=== PATIENT | female | born 1985 | race Caucasian/White ===

== ENCOUNTER 2017-01-08 16:49 | Emergency (ER) | payer BC ==
[2017-01-08 17:23] VITALS: BP 153/88
[2017-01-08] MEDS ORDERED: Sodium Chloride 0.9% 10 ML Syringe FLUSH PRN (17:27)
[2017-01-08] MEDS ORDERED: Morphine 4 MG/ML Syringe IVPUSH ONE (17:29)
[2017-01-08] MEDS ORDERED: Ondansetron 4 MG/2 ML SDV IV ONE (17:30)
--- NOTE | 2017-01-08 17:37 | EDM.PDOC ---
<Purvi Borden - Last Filed: 01/08/17 17:30> ED HPI GENERAL MEDICAL PROBLEM - General Chief Complaint: Abdominal Pain Stated Complaint: ABD PAINS, [id number] Time Seen by Provider: 01/08/17 17:30 Source of Information: Reports: Patient, RN Notes Reviewed - History of Present Illness INITIAL COMMENTS - FREE TEXT/NARRATIVE: patient is a morbidly obese 31-year-old female who presents with upper epigastric and right upper abdominal pain after having pizza for lunch. She states that the pain has been there for about 2 hours she states she's had the pain before but it has never been this bad. She states his goal aching and sometimes sharp and radiates into the back. She rates the pain a 7/10. She states nothing makes it better nothing makes it worse. She denies any nausea vomiting fever chills urinary symptoms. Severity: Moderate Improves with: Reports: None Worsens with: Reports: None - Related Data Allergies Allergy/AdvReac Type Severity Reaction Status Date / Time seasonal AdvReac Mild sinus Uncoded 01/08/17 17:06 infections Home Meds: Home Meds Labetalol HCl [Labetalol] 100 mg PO BID 01/08/17 [History] Lactase [Lactaid] 1 tab PO ASDIRECTED PRN 01/08/17 [History] Letrozole [Letrozole] 2.5 mg PO ASDIRECTED 01/08/17 [History] Loratadine [Claritin] 10 mg PO DAILY PRN 01/08/17 [History] metFORMIN HCl [Metformin HCl] 500 mg PO BID 01/08/17 [History] Past Medical History HEENT History: Reports: Impaired Vision Other HEENT History: wears contacts Cardiovascular History: Reports: Hypertension Respiratory History: Reports: None Gastrointestinal History: Reports: None Genitourinary History: Reports: None 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: Reports: Polycystic Ovaries, Other (See Below) Other OB/BYN History: miscarriage x1 2016 Musculoskeletal History: Reports: Back Pain, Chronic, Other (See Below) Other Musculoskeletal History: lower back issues and sees a chiropractor Neurological History: Reports: None Psychiatric History: Reports: None Endocrine/Metabolic History: Reports: None Hematologic History: Reports: None Oncologic (Cancer) History: Reports: None Dermatologic History: Reports: None - Infectious Disease History Infectious Disease History: Reports: None - Past Surgical History Female Surgical History: Reports: D&C Social & Family History - Tobacco Use Smoking Status *Q: Never Smoker Second Hand Smoke Exposure: No - Caffeine Use Caffeine Use: Reports: Soda - Recreational Drug Use Recreational Drug Use: No ED ROS GENERAL - Review of Systems Review Of Systems: ROS reveals no pertinent complaints other than HPI. ED EXAM, GI/ABD - Physical Exam Exam: See Below Exam Limited By: No Limitations General Appearance: Alert, WD/WN, No Apparent Distress Neck: Normal Inspection, Supple, Non-Tender, Full Range of Motion Respiratory/Chest: No Respiratory Distress, Lungs Clear, Normal Breath Sounds, No Accessory Muscle Use, Chest Non-Tender Cardiovascular: Normal Peripheral Pulses, Regular Rate, Rhythm, No Edema, No Gallop, No JVD, No Murmur, No Rub GI/Abdominal: Normal Bowel Sounds, Soft, No Organomegaly, No Distention, No Abnormal Bruit, Pelvis Stable, Tenderness, Other (right upper quadrant tenderness as well as midline epigastric) Extremities: Normal Inspection, Normal Range of Motion, Non-Tender, Normal Capillary Refill, No Pedal Edema Neurological: Alert, Oriented, CN II-XII Intact, Normal Cognition, Normal Gait, Normal Reflexes, No Motor/Sensory Deficits Psychiatric: Normal Affect, Normal Mood Skin Exam: Warm, Dry, Intact, Normal Color, No Rash Course - Vital Signs Last Recorded V/S: Last Vital Signs Temp 98.7 F 01/08/17 16:54 Pulse 92 01/08/17 16:54 Resp 16 01/08/17 16:54 BP 153/88 H 01/08/17 16:54 Pulse Ox 98 01/08/17 16:54 - Orders/Labs/Meds Orders: Active Orders 24 hr Category Date Time Status Peripheral IV Care [RC] . DIRECTED Care 01/08/17 17:28 Active Sodium Chloride 0.9% [Saline Flush] Med 01/08/17 17:27 Active 10 ml FLUSH ASDIRECTED PRN Peripheral IV Insertion Adult [OM.PC] Routine Oth 01/08/17 17:27 Ordered Medication Orders Sodium Chloride (Saline Flush) 10 ml FLUSH ASDIRECTED PRN PRN Reason: Keep Vein Open Labs: Laboratory Tests 01/08/17 01/08/17 01/08/17 Range/Units 17:34 17:34 17:50 WBC 12.4 H (5.0-10.0) 10^3/uL RBC 4.17 L (4.2-5.4) 10^6/uL Hgb 11.2 L (12.0-16.0) g/dL Hct 34.8 L (37.0-47.0) % MCV 83.5 (80-100) fL MCH 26.9 L (27.0-34.0) pg MCHC 32.2 L (33.0-35.0) g/dL Plt Count 325 (150-450) 10^3/uL Neut % (Auto) 76.2 H (42.2-75.2) % Lymph % (Auto) 18.5 L (20.5-50.1) % [place] % (Auto) 4.6 (2-8) % Eos % (Auto) 0.5 L (1.0-3.0) % Baso % (Auto) 0.2 (0.0-1.0) % Sodium 137 (135-145) mmol/L Potassium 3.9 (3.6-5.0) mmol/L Chloride 101 (101-111) mmol/L Carbon Dioxide 26.0 (21.0-31.0) mmol/L Anion Gap 13.9 BUN 11 (7-18) mg/dL Creatinine 0.8 (0.6-1.3) mg/dL Est Cr Clr Drug Dosing 89.60 mL/min Estimated GFR (MDRD) > 60 BUN/Creatinine Ratio 13.75 Glucose 94 (74-105) mg/dL Calcium 9.2 (8.4-10.2) mg/dl Total Bilirubin 0.3 (0.2-1.0) mg/dL AST 22 (10-42) IU/L ALT 11 (10-60) IU/L Alkaline Phosphatase 60 (42-121) IU/L Total Protein 7.3 (6.7-8.2) g/dl Albumin 4.0 (3.2-5.5) g/dl Globulin 3.3 Albumin/Globulin Ratio 1.21 Lipase 40 (22-51) U/L Urine Color (YELLOW) Urine Appearance (CLEAR) Urine pH (5.0-9.0) Ur Specific [place] (1.005-1.030) Urine Protein (NEGATIVE) Urine Glucose (UA) (NEGATIVE) Urine Ketones (NEGATIVE) Urine Occult Blood (NEGATIVE) Urine Nitrite (NEGATIVE) Urine Bilirubin (NEGATIVE) Urine Urobilinogen (0.2-1.0) mg/dL Ur Leukocyte Esterase (NEGATIVE) Urine RBC /HPF Urine WBC (0-5/HPF) /HPF Ur Epithelial Cells /HPF Urine Bacteria (0-FEW/HPF) /HPF Urine HCG, Qual Negative 01/08/17 Range/Units 17:50 WBC (5.0-10.0) 10^3/uL RBC (4.2-5.4) 10^6/uL Hgb (12.0-16.0) g/dL Hct (37.0-47.0) % MCV (80-100) fL MCH (27.0-34.0) pg MCHC (33.0-35.0) g/dL Plt Count (150-450) 10^3/uL Neut % (Auto) (42.2-75.2) % Lymph % (Auto) (20.5-50.1) % [place] % (Auto) (2-8) % Eos % (Auto) (1.0-3.0) % Baso % (Auto) (0.0-1.0) % Sodium (135-145) mmol/L Potassium (3.6-5.0) mmol/L Chloride (101-111) mmol/L Carbon Dioxide (21.0-31.0) mmol/L Anion Gap BUN (7-18) mg/dL Creatinine (0.6-1.3) mg/dL Est Cr Clr Drug Dosing mL/min Estimated GFR (MDRD) BUN/Creatinine Ratio Glucose (74-105) mg/dL Calcium (8.4-10.2) mg/dl Total Bilirubin (0.2-1.0) mg/dL AST (10-42) IU/L ALT (10-60) IU/L Alkaline Phosphatase (42-121) IU/L Total Protein (6.7-8.2) g/dl Albumin (3.2-5.5) g/dl Globulin Albumin/Globulin Ratio Lipase (22-51) U/L Urine Color Yellow (YELLOW) Urine Appearance Cloudy (CLEAR) Urine pH 7.5 (5.0-9.0) Ur Specific [place] 1.020 (1.005-1.030) Urine Protein Negative (NEGATIVE) Urine Glucose (UA) Negative (NEGATIVE) Urine Ketones Negative (NEGATIVE) Urine Occult Blood Negative (NEGATIVE) Urine Nitrite Negative (NEGATIVE) Urine Bilirubin Negative (NEGATIVE) Urine Urobilinogen 0.2 (0.2-1.0) mg/dL Ur Leukocyte Esterase Negative (NEGATIVE) Urine RBC 0-5 /HPF Urine WBC 0-5 (0-5/HPF) /HPF Ur Epithelial Cells Moderate H /HPF Urine Bacteria Moderate H (0-FEW/HPF) /HPF Urine HCG, Qual Meds: Medications Generic Name Dose Route Start Last Admin Trade Name Freq PRN Reason Stop Dose Admin Sodium Chloride 10 ml 01/08/17 17:27 Saline Flush FLUSH ASDIRECTED PRN Keep Vein Open Discontinued Medications Generic Name Dose Route Start Last Admin Trade Name Freq PRN Reason Stop Dose Admin Morphine Sulfate 4 mg 01/08/17 17:29 01/08/17 17:47 Morphine IVPUSH 01/08/17 17:30 4 mg ONETIME ONE Administration Ondansetron HCl 4 mg 01/08/17 17:30 01/08/17 17:45 Zofran IV 01/08/17 17:31 4 mg ONETIME ONE Administration Departure - Departure Disposition: Home, Self-Care 01 Clinical Impression: Abdominal pain Qualifiers: Abdominal location: right lower quadrant Qualified Code(s): R10.31 - Right lower quadrant pain - Discharge Information Instructions: Abdominal Pain, Adult, [id number] Forms: ED Department Discharge Additional Instructions: light bland diet, low acid, low fat follow up in clinic next week, if pain recurrent may consider HIDA scan through primary care <Ana Maria Guerra - Last Filed: 01/08/17 19:12> Course - Radiology Interpretation Free Text/Narrative:: CT abdomen and pelvis without contrast : simple cyst left ovary , Gallbladder normal, appendix normal - Re-Assessments/Exams Free Text/Narrative Re-Assessment/Exam: 01/08/17 19:11 pain improved. Light pain with palpatin mid epigastric. No nausea. Departure - Departure Time of Disposition: 19:10 Condition: good
[2017-01-08 18:04] LABS: CHLORIDE,CL 101 mmol/L (101-111); SODIUM,NA 137 mmol/L (135-145)
== END 2017-01-08 19:19 | disposition home or self-care (01) ==
LOC: DL.ED 16:49
DX: R10.13 Epigastric pain (principal); R10.31 Right lower quadrant pain; R10.11 Right upper quadrant pain; Z79.899 Other long term (current) drug therapy; H54.7 Unspecified visual loss; I10 Essential (primary) hypertension
CPT/HCPCS: 36415; 74176; 80053; 81001; 81025; 83690; 85025; 96374; 96375; 99284; J2270; J2405

== ENCOUNTER 2017-04-08 20:58 | Emergency (ER) | payer BC ==
[2017-04-08] MEDS ORDERED: Ondansetron 4 MG Tab.DIS PO ONE ×2 (20:59)
[2017-04-08] MEDS ORDERED: Acetaminophen/oxyCODONE 325-5 MG Tab PO ONE ×2 (20:59)
[2017-04-08] MEDS ORDERED: Sodium Chloride 0.9% 1,000 ML IV ONE (21:53)
[2017-04-08] MEDS ORDERED: Metoclopramide 10 MG/2 ML SDV IVPUSH ONE (21:54)
[2017-04-08] MEDS ORDERED: HYDROmorphone 1 MG/ML Syringe IVPUSH ONE (21:54)
--- NOTE | 2017-04-08 21:58 | EDM.PDOC ---
ED HPI GENERAL MEDICAL PROBLEM - General Chief Complaint: Abdominal Pain Stated Complaint: SEVERE ABD PAINS, GALLBLADDER, [id number] Time Seen by Provider: 04/08/17 21:40 Source of Information: Reports: Patient History Limitations: Reports: No Limitations - History of Present Illness INITIAL COMMENTS - FREE TEXT/NARRATIVE: RUQ pain worsening since 4 pm today. Hx GB problems, scheduled for surgery on . Ate grilled cheese and BBQ at noon today, nauseated no emesis yet. No fever. Has had GB US, CT and Hyda scan this summer. Similar sx in December 2016 Onset: Today Right Abdominal Pain Score (Numeric/FACES): 7 - Related Data Allergies Allergy/AdvReac Type Severity Reaction Status Date / Time seasonal AdvReac Mild sinus Uncoded 04/08/17 21:08 infections Home Meds: Home Meds Labetalol HCl [Labetalol] 100 mg PO BID 01/08/17 [History] Lactase [Lactaid] 1 tab PO ASDIRECTED PRN 01/08/17 [History] Letrozole [Letrozole] 2.5 mg PO ASDIRECTED 01/08/17 [History] Loratadine [Claritin] 10 mg PO DAILY PRN 01/08/17 [History] metFORMIN HCl [Metformin HCl] 500 mg PO BID 01/08/17 [History] Past Medical History HEENT History: Reports: Impaired Vision Other HEENT History: wears contacts Cardiovascular History: Reports: Hypertension Respiratory History: Reports: None Gastrointestinal History: Reports: Cholelithiasis Genitourinary History: Reports: None [employer]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[employer] History: Reports: Polycystic Ovaries, Other (See Below) Other OB/BYN History: miscarriage x1 2016 Musculoskeletal History: Reports: Back Pain, Chronic, Other (See Below) Other Musculoskeletal History: lower back issues and sees a chiropractor Neurological History: Reports: None Psychiatric History: Reports: None Endocrine/Metabolic History: Reports: None Hematologic History: Reports: None Oncologic (Cancer) History: Reports: None Dermatologic History: Reports: None - Infectious Disease History Infectious Disease History: Reports: None - Past Surgical History Female Surgical History: Reports: D&C Social & Family History - Family History Family Medical History: Noncontributory - Tobacco Use Smoking Status *Q: Never Smoker Second Hand Smoke Exposure: No - Caffeine Use Caffeine Use: Reports: Soda - Recreational Drug Use Recreational Drug Use: No ED ROS GENERAL - Review of Systems Review Of Systems: See Below Constitutional: Denies: Fever, Chills HEENT: Reports: No Symptoms Respiratory: Reports: No Symptoms Cardiovascular: Reports: No Symptoms GI/Abdominal: Reports: Abdominal Pain, Nausea. Denies: Diarrhea, Vomiting Musculoskeletal: Reports: No Symptoms Skin: Reports: No Symptoms Neurological: Reports: No Symptoms Psychiatric: Reports: No Symptoms ED EXAM, GI/ABD - Physical Exam Exam: See Below Exam Limited By: No Limitations General Appearance: Alert, Moderate Distress Eyes: Bilateral: Normal Appearance Ears: Normal External Exam Nose: Normal Inspection Throat/Mouth: Normal Inspection Head: Atraumatic, Normocephalic Neck: Normal Inspection Respiratory/Chest: No Respiratory Distress, Lungs Clear Cardiovascular: Normal Peripheral Pulses, Regular Rate, Rhythm, Tachycardia GI/Abdominal Exam: Normal Bowel Sounds, Soft, Tender (RUQ light palpation). No : Distended, Rigid, Rebound Back Exam: Normal Inspection Extremities: Normal Inspection Neurological: Alert, Oriented, Normal Cognition Psychiatric: Normal Affect Skin Exam: Warm, Dry, Intact Course - Vital Signs Last Recorded V/S: Last Vital Signs Temp 97.1 F 04/08/17 21:15 Pulse 118 H 04/08/17 21:15 Resp 20 04/08/17 21:15 BP 138/84 04/08/17 22:55 Pulse Ox 100 04/08/17 21:15 - Orders/Labs/Meds Labs: Laboratory Tests 04/08/17 04/08/17 04/08/17 Range/Units 21:30 21:30 22:02 WBC 11.5 H (5.0-10.0) 10^3/uL RBC 4.10 L (4.2-5.4) 10^6/uL Hgb 11.0 L (12.0-16.0) g/dL Hct 34.5 L (37.0-47.0) % MCV 84.1 (80-100) fL MCH 26.8 L (27.0-34.0) pg MCHC 31.9 L (33.0-35.0) g/dL Plt Count 339 (150-450) 10^3/uL Neut % (Auto) 67.8 (42.2-75.2) % Lymph % (Auto) 26.7 (20.5-50.1) % [place] % (Auto) 5.1 (2-8) % Eos % (Auto) 0.3 L (1.0-3.0) % Baso % (Auto) 0.1 (0.0-1.0) % Sodium (135-145) mmol/L Potassium (3.6-5.0) mmol/L Chloride (101-111) mmol/L Carbon Dioxide (21.0-31.0) mmol/L Anion Gap BUN (7-18) mg/dL Creatinine (0.6-1.3) mg/dL Est Cr Clr Drug Dosing mL/min Estimated GFR (MDRD) BUN/Creatinine Ratio Glucose (74-105) mg/dL Lactic Acid (0.5-2.2) mmol/L Calcium (8.4-10.2) mg/dl Total Bilirubin (0.2-1.0) mg/dL AST (10-42) IU/L ALT (10-60) IU/L Alkaline Phosphatase (42-121) IU/L C-Reactive Protein (0.0-1.3) mg/dL Total Protein (6.7-8.2) g/dl Albumin (3.2-5.5) g/dl Globulin Albumin/Globulin Ratio Amylase (28-100) U/L Lipase (22-51) U/L Urine Color Dark yellow (YELLOW) Urine Appearance Cloudy (CLEAR) Urine pH 7.0 (5.0-9.0) Ur Specific [place] 1.020 (1.005-1.030) Urine Protein Negative (NEGATIVE) Urine Glucose (UA) Negative (NEGATIVE) Urine Ketones Trace H (NEGATIVE) Urine Occult Blood Negative (NEGATIVE) Urine Nitrite Negative (NEGATIVE) Urine Bilirubin Negative (NEGATIVE) Urine Urobilinogen 1.0 (0.2-1.0) mg/dL Ur Leukocyte Esterase Negative (NEGATIVE) Urine RBC 0-5 /HPF Urine WBC 0-5 (0-5/HPF) /HPF Ur Epithelial Cells Moderate H /HPF Urine Bacteria Few (0-FEW/HPF) /HPF Urine Mucus Few H /LPF Urine HCG, Qual Negative 04/08/17 04/08/17 04/08/17 Range/Units 22:02 22:02 22:02 WBC (5.0-10.0) 10^3/uL RBC (4.2-5.4) 10^6/uL Hgb (12.0-16.0) g/dL Hct (37.0-47.0) % MCV (80-100) fL MCH (27.0-34.0) pg MCHC (33.0-35.0) g/dL Plt Count (150-450) 10^3/uL Neut % (Auto) (42.2-75.2) % Lymph % (Auto) (20.5-50.1) % [place] % (Auto) (2-8) % Eos % (Auto) (1.0-3.0) % Baso % (Auto) (0.0-1.0) % Sodium 138 (135-145) mmol/L Potassium 3.4 L (3.6-5.0) mmol/L Chloride 100 L (101-111) mmol/L Carbon Dioxide 27.0 (21.0-31.0) mmol/L Anion Gap 14.4 BUN 9 (7-18) mg/dL Creatinine 0.7 (0.6-1.3) mg/dL Est Cr Clr Drug Dosing 101.48 mL/min Estimated GFR (MDRD) > 60 BUN/Creatinine Ratio 12.85 Glucose 113 H (74-105) mg/dL Lactic Acid 1.5 (0.5-2.2) mmol/L Calcium 9.1 (8.4-10.2) mg/dl Total Bilirubin 0.7 (0.2-1.0) mg/dL AST 116 H (10-42) IU/L ALT 49 (10-60) IU/L Alkaline Phosphatase 66 (42-121) IU/L C-Reactive Protein 0.7 (0.0-1.3) mg/dL Total Protein 6.8 (6.7-8.2) g/dl Albumin 3.7 (3.2-5.5) g/dl Globulin 3.1 Albumin/Globulin Ratio 1.19 Amylase 42 (28-100) U/L Lipase 35 (22-51) U/L Urine Color (YELLOW) Urine Appearance (CLEAR) Urine pH (5.0-9.0) Ur Specific [place] (1.005-1.030) Urine Protein (NEGATIVE) Urine Glucose (UA) (NEGATIVE) Urine Ketones (NEGATIVE) Urine Occult Blood (NEGATIVE) Urine Nitrite (NEGATIVE) Urine Bilirubin (NEGATIVE) Urine Urobilinogen (0.2-1.0) mg/dL Ur Leukocyte Esterase (NEGATIVE) Urine RBC /HPF Urine WBC (0-5/HPF) /HPF Ur Epithelial Cells /HPF Urine Bacteria (0-FEW/HPF) /HPF Urine Mucus /LPF Urine HCG, Qual Meds: Medications Discontinued Medications Generic Name Dose Route Start Last Admin Trade Name Waqasq PRN Reason Stop Dose Admin Hydromorphone HCl 1 mg 04/08/17 21:54 04/08/17 22:26 Dilaudid IVPUSH 04/08/17 21:55 1 mg ONETIME ONE Administration Sodium Chloride 1,000 mls @ 999 mls/hr 04/08/17 21:53 04/08/17 22:20 Normal Saline IV 04/08/17 22:53 999 mls/hr .BOLUS ONE Administration Metoclopramide HCl 10 mg 04/08/17 21:54 04/08/17 22:25 Reglan IVPUSH 04/08/17 21:55 10 mg ONETIME ONE Administration - Re-Assessments/Exams Free Text/Narrative Re-Assessment/Exam: 04/08/17 22:52 Pain reported to be almost all resolved. Departure - Departure Time of Disposition: 22:52 Disposition: Home, Self-Care 01 Condition: Fair Clinical Impression: Cholecystitis - Discharge Information Instructions: Cholecystitis, [id number] Forms: ED Department Discharge Additional Instructions: follow up with surgeon in am to update urgent follow up if fever , severe pain, and vomiting percocet 5/325 one every 6 hours as needed for pain zofran odt 4mg one every 4 hours as needed for nausea
[2017-04-08 22:32] LABS: CHLORIDE,CL 100 mmol/L (101-111); SODIUM,NA 138 mmol/L (135-145)
[2017-04-08 23:11] VITALS: BP 138/84
== END 2017-04-08 23:00 | disposition home or self-care (01) ==
LOC: DL.ED 20:58
DX: K81.9 Cholecystitis, unspecified (principal); H54.7 Unspecified visual loss; I10 Essential (primary) hypertension; Z88.8 Allergy status to other drugs, medicaments and biological substances; Z79.84 Long term (current) use of oral hypoglycemic drugs
CPT/HCPCS: 36415; 80053; 81001; 81025; 82150; 83605; 83690; 85025; 86140; 96374; 96375; 99283; J1170; J2765; J7030; A9270-GY

== ENCOUNTER 2017-04-09 11:05 | Emergency (ER) | payer BC ==
[2017-04-09] MEDS ORDERED: Ondansetron 4 MG/2 ML SDV IV ONE (13:01)
[2017-04-09] MEDS ORDERED: HYDROmorphone 1 MG/ML Syringe IVPUSH ONE (13:01)
[2017-04-09] MEDS ORDERED: Sodium Chloride 0.9% 10 ML Syringe FLUSH PRN (13:01)
[2017-04-09] MEDS ORDERED: Sodium Chloride 0.9% 1,000 ML IV ONE (13:01)
[2017-04-09] MEDS ORDERED: Iopamidol 612 MG/ML 100 ML Bottle IVPUSH ONE (13:23)
[2017-04-09 13:34] LABS: CHLORIDE,CL 102 mmol/L (101-111); SODIUM,NA 139 mmol/L (135-145)
--- NOTE | 2017-04-09 13:39 | EDM.PDOC ---
<PaoloBarry - Last Filed: 04/09/17 21:24> ED HPI GENERAL MEDICAL PROBLEM - General Chief Complaint: Abdominal Pain Stated Complaint: GALLBLADDER ATTACK Time Seen by Provider: 04/09/17 13:01 - Related Data Allergies Allergy/AdvReac Type Severity Reaction Status Date / Time seasonal AdvReac Mild sinus Uncoded 04/09/17 12:30 infections Home Meds: Home Meds Labetalol HCl [Labetalol] 100 mg PO BID 01/08/17 [History] Lactase [Lactaid] 1 tab PO ASDIRECTED PRN 01/08/17 [History] Letrozole [Letrozole] 2.5 mg PO ASDIRECTED 01/08/17 [History] Loratadine [Claritin] 10 mg PO DAILY PRN 01/08/17 [History] metFORMIN HCl [Metformin HCl] 500 mg PO BID 01/08/17 [History] Course - Vital Signs Last Recorded V/S: Last Vital Signs Temp 98.2 F 04/09/17 21:06 Pulse 84 04/09/17 21:06 Resp 16 04/09/17 21:06 BP 152/98 H 04/09/17 21:06 Pulse Ox 100 04/09/17 21:06 - Orders/Labs/Meds Orders: Active Orders 24 hr Category Date Time Status EKG Documentation Completion [RC] STAT Care 04/09/17 19:07 Active Oral Fluid Challenge [RC] ASDIRECTED Care 04/09/17 14:49 Active Saline Lock Insert [OM.PC] Stat Oth 04/09/17 13:00 Ordered Labs: Laboratory Tests 04/09/17 04/09/17 04/09/17 Range/Units 13:08 13:08 20:05 WBC 8.4 (5.0-10.0) 10^3/uL RBC 4.23 (4.2-5.4) 10^6/uL Hgb 11.5 L (12.0-16.0) g/dL Hct 35.8 L (37.0-47.0) % MCV 84.6 (80-100) fL MCH 27.2 (27.0-34.0) pg MCHC 32.1 L (33.0-35.0) g/dL Plt Count 343 (150-450) 10^3/uL Neut % (Auto) 81.2 H (42.2-75.2) % Lymph % (Auto) 13.0 L (20.5-50.1) % Harmon % (Auto) 5.5 (2-8) % Eos % (Auto) 0.1 L (1.0-3.0) % Baso % (Auto) 0.2 (0.0-1.0) % Sodium 139 (135-145) mmol/L Potassium 4.2 (3.6-5.0) mmol/L Chloride 102 (101-111) mmol/L Carbon Dioxide 27.0 (21.0-31.0) mmol/L Anion Gap 14.2 BUN 8 (7-18) mg/dL Creatinine 0.7 (0.6-1.3) mg/dL Est Cr Clr Drug Dosing TNP Estimated GFR (MDRD) > 60 Glucose 110 H (74-105) mg/dL Calcium 8.9 (8.4-10.2) mg/dl Creatine Kinase 55 (26-174) IU/L Creatine Kinase Index 1.3 (0-2.4) % CK-MB (CK-2) 0.70 (0.4-4.7) ng/mL Troponin I (0.00-0.02) ng/ml Amylase 38 (28-100) U/L Lipase 30 (22-51) U/L 08/30/17 Range/Units 20:05 WBC (5.0-10.0) 10^3/uL RBC (4.2-5.4) 10^6/uL Hgb (12.0-16.0) g/dL Hct (37.0-47.0) % MCV (80-100) fL MCH (27.0-34.0) pg MCHC (33.0-35.0) g/dL Plt Count (150-450) 10^3/uL Neut % (Auto) (42.2-75.2) % Lymph % (Auto) (20.5-50.1) % Harmon % (Auto) (2-8) % Eos % (Auto) (1.0-3.0) % Baso % (Auto) (0.0-1.0) % Sodium (135-145) mmol/L Potassium (3.6-5.0) mmol/L Chloride (101-111) mmol/L Carbon Dioxide (21.0-31.0) mmol/L Anion Gap BUN (7-18) mg/dL Creatinine (0.6-1.3) mg/dL Est Cr Clr Drug Dosing Estimated GFR (MDRD) Glucose (74-105) mg/dL Calcium (8.4-10.2) mg/dl Creatine Kinase (26-174) IU/L Creatine Kinase Index (0-2.4) % CK-MB (CK-2) (0.4-4.7) ng/mL Troponin I < 0.02 (0.00-0.02) ng/ml Amylase (28-100) U/L Lipase (22-51) U/L Meds: Medications Discontinued Medications Generic Name Dose Route Start Last Admin Trade Name Freq PRN Reason Stop Dose Admin Hydrocodone Bitart/Acetaminophen 1 tab 04/09/17 16:39 [place] 325-10 Mg PO ONETIME PRN Abdominal Pain Hydromorphone HCl 1 mg 04/09/17 13:01 04/09/17 13:44 Dilaudid IVPUSH 04/09/17 13:02 1 mg ONETIME ONE Administration Sodium Chloride 1,000 mls @ 999 mls/hr 04/09/17 13:01 04/09/17 13:42 Normal Saline IV 04/09/17 14:01 999 mls/hr .BOLUS ONE Administration Iopamidol 100 ml 04/09/17 13:23 04/09/17 14:06 Isovue-300 (61%) IVPUSH 04/09/17 13:24 100 ml ONETIME ONE Administration Labetalol HCl 100 mg 04/09/17 15:52 04/09/17 16:14 Normodyne PO 04/09/17 15:53 100 mg ONETIME ONE Administration Ondansetron HCl 4 mg 04/09/17 13:01 04/09/17 13:42 Zofran IV 04/09/17 13:02 4 mg ONETIME ONE Administration Sodium Chloride 10 ml 04/09/17 13:01 04/09/17 13:40 Saline Flush FLUSH 10 ml ASDIRECTED PRN Administration Keep Vein Open - Re-Assessments/Exams Free Text/Narrative Re-Assessment/Exam: 04/09/17 21:24 cardiac w/u negative, pt no c/o pain. has appt with surgeon 04-24 Departure - Departure Disposition: Home, Self-Care 01 Condition: Good Clinical Impression: Cholecystitis Abdominal pain Qualifiers: Abdominal location: epigastric Qualified Code(s): R10.13 - Epigastric pain - Discharge Information Instructions: Cholecystitis, [id number] Referrals: Ramin Penaloza, [employer] [facility] [Primary Care Provider] - Forms: ED Department Discharge Additional Instructions: 1) Do not take your Metformin for [address] scan. 2) notify Surgeon tomorrow on today's visit to see if it is possible to move up the appointment 3) avoid fatty, fried, oily spicy foods 4) eat bland diet 5) recheck if there is any concern or changes. - My Orders Last 24 Hours: My Active Orders 04/09/17 13:00 Saline Lock Insert [OM.PC] Stat 04/09/17 14:49 Oral Fluid Challenge [RC] ASDIRECTED 04/09/17 19:07 EKG Documentation Completion [RC] STAT - Assessment/Plan Last 24 Hours: My Active Orders 04/09/17 13:00 Saline Lock Insert [OM.PC] Stat 04/09/17 14:49 Oral Fluid Challenge [RC] ASDIRECTED 04/09/17 19:07 EKG Documentation Completion [RC] STAT <Marie Bradshaw - Last Filed: 04/10/17 07:15> ED HPI GENERAL MEDICAL PROBLEM - General Source of Information: Reports: Patient History Limitations: Reports: No Limitations - History of Present Illness INITIAL COMMENTS - FREE TEXT/NARRATIVE: 32 yo female presents with abdominal pain. States that she was seen last night in this ER and given pain meds and antiemetics, states that she took medication this morning but pain has not subsided. 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, Other (See Below) Other OB/BYN History: miscarriage x1 2016 Musculoskeletal History: Reports: Back Pain, Chronic, Other (See Below) Other Musculoskeletal History: lower back issues and sees a chiropractor Neurological History: Reports: None Psychiatric History: Reports: None Endocrine/Metabolic History: Reports: None Hematologic History: Reports: None Oncologic (Cancer) History: Reports: None Dermatologic History: Reports: None - Infectious Disease History Infectious Disease History: Reports: None - Past Surgical History Female Surgical History: Reports: D&C Social & Family History - Family History Family Medical History: Noncontributory - Tobacco Use Smoking Status *Q: Never Smoker Second Hand Smoke Exposure: No - Caffeine Use Caffeine Use: Reports: Soda - Recreational Drug Use Recreational Drug Use: No ED ROS GENERAL - Review of Systems Review Of Systems: ROS reveals no pertinent complaints other than HPI. ED EXAM, GI/ABD - Physical Exam Exam: See Below Exam Limited By: No Limitations General Appearance: Alert, WD/WN, No Apparent Distress Eyes: Bilateral: Normal Appearance, EOMI Respiratory/Chest: No Respiratory Distress, Lungs Clear, Normal Breath Sounds, No Accessory Muscle Use, Chest Non-Tender Cardiovascular: Normal Peripheral Pulses, Regular Rate, Rhythm, No Edema, No Gallop, No JVD, No Murmur, No Rub GI/Abdominal Exam: Normal Bowel Sounds, Soft, No Organomegaly, No Distention, No Abnormal Bruit, No Mass, Pelvis Stable, Tender (RUQ radiating across to epigastric) Back Exam: Normal Inspection, Full Range of Motion, NT Extremities: Normal Inspection, Normal Range of Motion, Non-Tender, Normal Capillary Refill, No Pedal Edema Neurological: Alert, Oriented, CN II-XII Intact, Normal Cognition, Normal Gait, No Motor/Sensory Deficits Skin Exam: Warm, Dry, Intact, Normal Color, No Rash Lymphatic: No Adenopathy Course - Radiology Interpretation Free Text/Narrative:: No acute findings - Re-Assessments/Exams Free Text/Narrative Re-Assessment/Exam: 04/09/17 14:47 Pt states that she feels better, will attempt PO challenge Departure - Departure Time of Disposition: 21:30
[2017-04-09] MEDS ORDERED: Labetalol 100 MG Tab PO ONE (15:52)
[2017-04-09] MEDS ORDERED: Acetaminophen/HYDROcodone 325-10 MG Tab PO PRN (16:39)
[2017-04-09 21:07] VITALS: BP 152/98
--- NOTE | 2017-04-13 11:16 | EKG ---
04/09/2017 - MARIA D GRANADOS - This 12-lead EKG, shows a normal sinus rhythm with a ventricular rate of 81. Normal axis and intervals. No acute ST-segment or T-wave changes. [facility] /[id number]
== END 2017-04-09 21:56 | disposition home or self-care (01) ==
LOC: DL.ED 11:05
DX: K81.9 Cholecystitis, unspecified (principal); H54.7 Unspecified visual loss; I10 Essential (primary) hypertension; Z79.899 Other long term (current) drug therapy
CPT/HCPCS: 36415; 74177; 80048; 82150; 82550; 82553; 83690; 84484; 85025; 93005; 96361; 96374; 96375; 99284; A9270; J1170; J2405; J7030; J7050; Q9967

== ENCOUNTER 2017-05-14 13:24 | Emergency (ER) | payer BC ==
[2017-05-14 14:30] VITALS: BP 141/81
--- NOTE | 2017-05-14 15:21 | EDM.PDOC ---
ED HPI GENERAL MEDICAL PROBLEM - General Chief Complaint: Abdominal Pain Stated Complaint: POST GALL BLADDER, 3 WEEKS Time Seen by Provider: 05/14/17 15:21 Source of Information: Reports: Patient, RN, RN Notes Reviewed History Limitations: Reports: No Limitations - History of Present Illness INITIAL COMMENTS - FREE TEXT/NARRATIVE: Patient presents to the ER with c/o severe epigastric/abdominal pain. She states it began very suddenly while she was at work. She asked for one of her co -workers to bring her to the ER. She states her pain was a 9/10 when she arrived at the hospital, but has decreased to a 2/10 while waiting to be seen. She states she had a cholecystectomy approximately 3 weeks ago. She was to her follow up post op appointment and everything has been good. She states she was not well educated on discharge what kind of diet to follow. She states she ate pizza today for lunch, and has been eating it prior to today. Patient states she felt nauseated with the pain, but that has since resolved. Patient denies fever, chills, chest pain, SOB, vomiting or diarrhea. Onset: Today, Sudden Location: Reports: Abdomen Quality: Reports: Sharp Severity: Moderate Improves with: Reports: None Worsens with: Reports: None Associated Symptoms: Reports: Nausea/Vomiting Right Abdomen Pain Score (Numeric/FACES): 6 - Related Data Allergies Allergy/AdvReac Type Severity Reaction Status Date / Time seasonal AdvReac Mild sinus Uncoded 05/14/17 14:30 infections Home Meds: Home Meds Labetalol HCl [Labetalol] 100 mg PO BID 01/08/17 [History] Lactase [Lactaid] 1 tab PO ASDIRECTED PRN 01/08/17 [History] Letrozole [Letrozole] 2.5 mg PO ASDIRECTED 01/08/17 [History] Loratadine [Claritin] 10 mg PO DAILY PRN 01/08/17 [History] metFORMIN HCl [Metformin HCl] 500 mg PO BID 01/08/17 [History] Acetaminophen [Tylenol] 975 mg PO ASDIRECTED PRN 05/14/17 [History] Hydrocodone/Acetaminophen [Hydrocodon-Acetaminophen 5-325] 1 tab PO ASDIRECTED PRN 05/14/17 [History] Past Medical History HEENT History: Reports: Impaired Vision Other HEENT History: wears contacts Cardiovascular History: Reports: Hypertension Respiratory History: Reports: None Gastrointestinal History: Reports: Cholelithiasis Genitourinary History: Reports: None 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, Other (See Below) Other OB/BYN History: miscarriage x1 2016 Musculoskeletal History: Reports: Back Pain, Chronic, Other (See Below) Other Musculoskeletal History: lower back issues and sees a chiropractor Neurological History: Reports: None Psychiatric History: Reports: None Endocrine/Metabolic History: Reports: None Hematologic History: Reports: None Immunologic History: Reports: None Oncologic (Cancer) History: Reports: None Dermatologic History: Reports: None - Infectious Disease History Infectious Disease History: Reports: None - Past Surgical History Head Surgeries/Procedures: Reports: None GI Surgical History: Reports: Cholecystectomy Female Surgical History: Reports: D&C Social & Family History - Family History Family Medical History: Noncontributory - Tobacco Use Smoking Status *Q: Never Smoker Second Hand Smoke Exposure: No - Caffeine Use Caffeine Use: Reports: Soda - Recreational Drug Use Recreational Drug Use: No ED ROS GENERAL - Review of Systems Review Of Systems: ROS reveals no pertinent complaints other than HPI. ED EXAM, GI/ABD - Physical Exam Exam: See Below Exam Limited By: No Limitations General Appearance: Alert, WD/WN, No Apparent Distress Ears: Normal External Exam, Hearing Grossly Normal Nose: Normal Inspection Throat/Mouth: Normal Inspection, Normal Lips, Normal Teeth, Normal Gums, Normal Oropharynx, Normal Voice, No Airway Compromise Head: Atraumatic, Normocephalic Neck: Normal Inspection, Supple, Non-Tender, Full Range of Motion Respiratory/Chest: No Respiratory Distress, Lungs Clear, Normal Breath Sounds, No Accessory Muscle Use, Chest Non-Tender Cardiovascular: Normal Peripheral Pulses, Regular Rate, Rhythm, No Edema, No Gallop, No JVD, No Murmur, No Rub GI/Abdominal Exam: Normal Bowel Sounds, Soft, No Organomegaly, No Distention, No Abnormal Bruit, No Mass, Tender (epigastric region) (Female) Exam: Deferred Rectal (Female) Exam: Deferred Back Exam: Normal Inspection, Full Range of Motion, NT Extremities: Normal Inspection, Normal Range of Motion, Non-Tender, Normal Capillary Refill, No Pedal Edema Neurological: Alert, Oriented, CN II-XII Intact, Normal Cognition, Normal Gait, Normal Reflexes, No Motor/Sensory Deficits Psychiatric: Normal Affect, Normal Mood Skin Exam: Warm, Dry, Intact, Normal Color, No Rash Lymphatic: No Adenopathy Course - Vital Signs Last Recorded V/S: Last Vital Signs Temp 97 F 05/14/17 14:21 Pulse 89 05/14/17 14:21 Resp 16 05/14/17 14:21 BP 141/81 H 05/14/17 14:21 Pulse Ox 100 05/14/17 14:21 Departure - Departure Time of Disposition: 15:34 Disposition: Home, Self-Care 01 Condition: Good Clinical Impression: Abdominal pain Qualifiers: Abdominal location: epigastric Qualified Code(s): R10.13 - Epigastric pain - Discharge Information Instructions: Abdominal Pain, Adult, [id number], Laparoscopic Cholecystectomy , Care After, [id number] Referrals: Ramin Penaloza NP [Primary Care Provider] - Forms: ED Department Discharge Additional Instructions: Follow up with your primary care facility. [place] diet Drink plenty of water.
== END 2017-05-14 15:52 | disposition home or self-care (01) ==
LOC: DL.ED 13:24
DX: R10.13 Epigastric pain (principal); I10 Essential (primary) hypertension; Z91.048 Other nonmedicinal substance allergy status; Z90.49 Acquired absence of other specified parts of digestive tract
CPT/HCPCS: 99284

== ENCOUNTER 2017-09-15 06:58 | Day surgery (SDC) | payer BC ==
[~2017-09-15 06:58] MED LIST: Dextrose 5%-0.45% NaCl 1,000 ML IV SCH; Midazolam 1 MG/ML 2 ML SDV ONE; Sodium Chloride 0.9% 10 ML Syringe FLUSH PRN; fentaNYL 100 MCG/2 ML SDV ONE
[2017-09-15] MEDS ORDERED: fentaNYL 100 MCG/2 ML SDV IV ONE ×2 (06:59→07:43)
[2017-09-15] MEDS ORDERED: Midazolam 1 MG/ML 2 ML SDV IV ONE ×3 (06:59→07:44)
[2017-09-15 10:53] VITALS: BP 138/99
--- NOTE | 2017-09-15 12:29 | OR ---
DATE: 09/15/2017 PROCEDURE: Esophagogastroduodenoscopy and multiple pinch biopsies. INSTRUMENT USED: [id number] Olympus video panendoscope. PREMEDICATIONS: No oral topical anesthesia used. Fentanyl 100 mcg intravenous, Versed 2 mg intravenous. Nasal O2 cannula. The procedure was done under pulse oximetry, BP recording, and cardiac rehab nurse. INDICATION: The patient with persistent heartburn as well as abdominal pain, unexplained, not responsive to medical measures, on acid suppressants. Esophagogastroduodenoscopy is performed for detection of any active erosive lesions, Harrison's esophagus and/or malignancy also under consideration, H. pylori status to be determined, endoscopic hemostasis therapy if needed. DESCRIPTION OF PROCEDURE: The scope was passed with ease. Adequate visualization of the esophagus was made from proximal to distal areas. No upper esophageal lesions identified. No distal esophageal stricture. No uphill or downhill esophageal varices. No Yneny-Silveira tear. No evidence of erosive esophagitis by [place] criteria. No esophageal polyp or tumor mass identified. Z-line was seen at around 39 cm distal to the oral verge, configuration consistent with grade 1 by ZAP classification. No proximal gastric varices noted. Gastric fundus examination by retroflexion showed no polypoid lesions. No gastric ulcer, malignant mass, or vascular ectasia identified. Duodenal bulb showed no ulcer. Visualized second part of the duodenum was unremarkable. Multiple pinch biopsies were taken from the gastric antrum and proximal body and sent for PyloriTek test for H. pylori, and if negative in an hour, the tissue is to be sent for histopathology. No bleeding was noted from any of the visualized areas at the completion of examination. Photographs were taken of the duodenal bulb, gastric antrum, fundus, and distal esophagus. IMPRESSION: Normal study. The patient tolerated the procedure well. [facility] /[id number]
== END 2017-09-15 09:56 | disposition home or self-care (01) ==
LOC: DL.ENDO 06:58
PROVIDERS: ATTEND Internal Medicine Gastroenterology
DX: K31.89 Other diseases of stomach and duodenum (principal); E28.2 Polycystic ovarian syndrome; E73.9 Lactose intolerance, unspecified; E66.09 Other obesity due to excess calories; Z90.49 Acquired absence of other specified parts of digestive tract
CPT/HCPCS: 43239; 87077; J2250; J3010; J7042

== ENCOUNTER 2021-08-22 07:10 | Inpatient (IN) | payer BC ==
[2021-08-22] MEDS: Labetalol 100 MG Tab PO SCH ×2 (08:00→20:35)
[2021-08-22] MEDS ORDERED: Acetaminophen 325 MG Tab PO PRN (08:09)
[2021-08-22] MEDS ORDERED: Ondansetron 4 MG/2 ML SDV IVPUSH PRN ×2 (08:09→19:54)
[2021-08-22] MEDS ORDERED: Misoprostol 400 MCG (4 X 100 MCG TAB) RECTAL PRN ×2 (08:09→21:22)
[2021-08-22] MEDS ORDERED: Tranexamic Acid 1,000 MG in Sodium Chloride 0.9% 100 ML IV PRN ×2 (08:09→21:22)
[2021-08-22] MEDS ORDERED: Lidocaine 1% 30 ML SDV INJECT PRN (08:09)
[2021-08-22] MEDS ORDERED: Carboprost Tromethamine 250 MCG/1 ML Amp IM PRN ×2 (08:09→21:22)
[2021-08-22] MEDS ORDERED: Lactated Ringers 1,000 ML IV ONE (08:09)
[2021-08-22] MEDS ORDERED: Methylergonovine 0.2 MG/1 ML Amp IM PRN (08:09)
[2021-08-22] MEDS ORDERED: Oxytocin/Normal Saline 30 UNIT/500 ML BAG IV SCH (08:15)
[2021-08-22 08:56] LABS: ANION GAP 18.2 mEq/L (7-13); CHLORIDE,CL 102 mmol/L (98-107); SODIUM,NA 139 mmol/L (136-145)
[2021-08-22] MEDS: Lactated Ringers 1,000 ML IV SCH ×3 (09:00→19:59)
[2021-08-22] MEDS ORDERED: Penicillin G Potassium 5 MILLUNITS in Sodium Chloride 0.9% 100 ML IV ONE (09:15)
[2021-08-22] MEDS: Penicillin G Potassium 3 MILLUNITS in Sodium Chloride 0.9% 100 ML IV SCH ×3 (12:30→22:05)
[2021-08-22] MEDS ORDERED: Nalbuphine 10 MG/1 ML Vial IM ONE (17:54)
[2021-08-22] MEDS ORDERED: Naloxone 2 MG/2 ML Syringe IVPUSH PRN (19:54)
[2021-08-22] MEDS ORDERED: Promethazine 25 MG/ML SDV IM PRN (19:54)
[2021-08-22] MEDS ORDERED: ePHEDrine 50 MG/ML SDV IVPUSH PRN (19:54)
[2021-08-22] MEDS ORDERED: fentaNYL 100 MCG/2 ML SDV IVPUSH PRN (19:54)
[2021-08-22] MEDS ORDERED: fentaNYL 100 MCG/2 ML SDV ONE (19:59)
[2021-08-22] MEDS ORDERED: Lactated Ringers 500 ML IV SCH ×2 (20:00)
[2021-08-22] MEDS ORDERED: EPINEPHrine 1 MG/ML SDV ONE ×2 (20:00)
[2021-08-22] MEDS ORDERED: fentaNYL 100 MCG/2 ML SDV ITHECAL ONE (20:00)
[2021-08-22] MEDS ORDERED: Benzocaine/Menthol 20%-0.5% Spray 78 GM Cannister TOP PRN (21:22)
[2021-08-22] MEDS ORDERED: Oxytocin 10 Units/1 ML SDV IM PRN (21:22)
[2021-08-22] MEDS ORDERED: Simethicone 80 MG Tab.Chew PO PRN (21:22)
[2021-08-23] MEDS: Ibuprofen 800 MG Tab PO PRN ×2 (04:44→18:02)
[2021-08-23] MEDS: Labetalol 100 MG Tab PO SCH ×2 (09:13→20:49)
[2021-08-23] MEDS: FLUoxetine 10 MG Cap PO SCH (09:13)
[2021-08-23] MEDS: Prenatal Multivitamin with Calcium/Folic Acid/Iron Tab PO SCH (09:13)
[2021-08-23] MEDS: Docusate Sodium 100 MG Cap PO PRN (09:13)
[2021-08-23] MEDS: Acetaminophen 325 MG Tab PO PRN ×2 (09:19→18:04)
[2021-08-24] MEDS: Ibuprofen 800 MG Tab PO PRN ×2 (02:10→09:56)
[2021-08-24] MEDS: Acetaminophen 325 MG Tab PO PRN ×2 (02:11→09:56)
[2021-08-24] MEDS: Docusate Sodium 100 MG Cap PO PRN (09:54)
[2021-08-24] MEDS: FLUoxetine 10 MG Cap PO SCH (09:54)
[2021-08-24] MEDS: Prenatal Multivitamin with Calcium/Folic Acid/Iron Tab PO SCH (09:54)
[2021-08-24] MEDS: Labetalol 100 MG Tab PO SCH (09:54)
[2021-08-24 09:56] VITALS: BP 136/91; PULSE 85
== END 2021-08-24 12:30 | disposition home or self-care (01) | DRG 560 ==
LOC: DL.OBCHECK 07:10 → DL.OB 08:23 → OBSVTOIN 21:06
PROVIDERS: ADMIT Family Medicine; ATTEND Family Medicine
PROC: 10E0XZZ Delivery of Products of Conception, External Approach (ICD-10-PCS; principal; 2021-08-22)
PROC: 10907ZC Drainage of Amniotic Fluid, Therapeutic from Products of Conception, Via Natural or Artificial Opening (ICD-10-PCS; 2021-08-22)
PROC: 3E033VJ Introduction of Other Hormone into Peripheral Vein, Percutaneous Approach (ICD-10-PCS; 2021-08-22)
PROC: 3E0R3BZ Introduction of Anesthetic Agent into Spinal Canal, Percutaneous Approach (ICD-10-PCS; 2021-08-22)
PROC: 00HU33Z Insertion of Infusion Device into Spinal Canal, Percutaneous Approach (ICD-10-PCS; 2021-08-22)
DX: O10.92 Unspecified pre-existing hypertension complicating childbirth (principal); Z37.0 Single live birth; O99.824 Streptococcus B carrier state complicating childbirth; O70.0 First degree perineal laceration during delivery; O99.344 Other mental disorders complicating childbirth; F41.9 Anxiety disorder, unspecified; Z20.822 Contact with and (suspected) exposure to COVID-19; Z28.82 Immunization not carried out because of caregiver refusal; Z68.38 Body mass index [BMI] 38.0-38.9, adult
CPT/HCPCS: 01967; 36415; 59025; 59409; 80053; 81003; 82570; 83615; 84156; 84550; 85027; A9270-GY; J0171; J2300; J2540; J2590; J3010; J7120; U0002

== ENCOUNTER 2022-10-10 10:35 | Emergency (ER) | payer BC ==
[2022-10-10 10:48] VITALS: PULSE 84
[2022-10-10 10:57] VITALS: BP 177/111
[2022-10-10 12:06] LABS: ANION GAP 14.1 mEq/L (7-13); CHLORIDE,CL 101 mmol/L (98-107); ESTIMATED GFR 102 mL/min (>=60); SODIUM,NA 141 mmol/L (136-145)
== END 2022-10-10 12:49 | disposition home or self-care (01) ==
LOC: DL.ED 10:35
DX: I10 Essential (primary) hypertension (principal); K21.9 Gastro-esophageal reflux disease without esophagitis; E66.9 Obesity, unspecified; Z68.45 Body mass index [BMI] 70 or greater, adult; Z91.011 Allergy to milk products; Z91.018 Allergy to other foods; Z91.09 Other allergy status, other than to drugs and biological substances; Z79.899 Other long term (current) drug therapy
CPT/HCPCS: 36415; 71046; 80053; 83735; 84443; 84484; 84703; 85025; 85379; 93005; 93010; 99284